=== PATIENT | female | born 1965 | race Caucasian/White ===

== ENCOUNTER 2018-01-14 09:46 | Emergency (ER) | payer SELFPAY ==
[2018-01-14] MEDS ORDERED: ALBUTEROL 2.5 MG/3 ML NEB SOL ONE (11:14)
[2018-01-14] MEDS ORDERED: predniSONE 20 MG TAB ONE (11:14)
[2018-01-14] MEDS ORDERED: IPRATROPIUM BROM 0.5MG/2.5ML ONE (11:14)
--- NOTE | 2018-01-14 12:14 | RAD REPORT ---
EXAM DESCRIPTION: Jim Eisenberg (2 Views)01/14/2018 11:51 am CLINICAL HISTORY: Cough COMPARISON: None FINDINGS: The lungs appear clear of acute infiltrate. The heart is normal size IMPRESSION: No acute abnormalities displayed
--- NOTE | 2018-01-14 12:20 | ER ---
Nurse's Notes [facility] Name: Liz Presley Age: 52 yrs Sex: Female : 1965 Arrival Date: 01/14/2018 Time: 09:51 Bed 7 Private MD: Diagnosis: Chronic obstructive pulmonary disease with (acute) exacerbation Presentation: 01/14 10:04 Presenting complaint: Patient states: [place] been sick for 6 days. It started with a sore aj1 throat that's moved into my chest. Im coughing and having a lot of pain in my back and sides. I feel like I'm getting pneumonia. Reports shortness of breath with activity, chills, non-productive cough, nausea. Denies vomiting, diarrhea. Transition of care: patient was not received from another setting of care. Onset of symptoms was January 08, 2018. Initial Sepsis Screen: Does the patient meet any 2 criteria? No. Patient's initial sepsis screen is negative. Does the patient have a suspected source of infection? No. Patient's initial sepsis screen is negative. Care prior to arrival: None. 10:04 Method Of Arrival: Ambulatory aj1 10:04 Acuity: [place] 3 aj1 Triage Assessment: 10:10 General: Appears in no apparent distress. uncomfortable, Behavior is calm, cooperative, aj1 appropriate for age. Pain: Complains of pain in back and chest Pain does not radiate. Pain currently is 8 out of 10 on a pain scale. Quality of pain is described as sharp, shooting, Pain began 3 days ago. Cardiovascular: Heart tones S1 S2 present Patient's skin is warm and dry. Respiratory: Reports shortness of breath on exertion cough that is non-productive, Airway is patent Respiratory effort is even, unlabored, Respiratory pattern is regular, symmetrical, Breath sounds are clear Onset: The symptoms/episode began/occurred 3 days ago, the patient has mild shortness of breath. 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 - Social history:: Smoking status: Patient uses tobacco products, smokes one pack cigarettes per day. Screenin:15 Abuse screen: Denies threats or abuse. Denies injuries from another. Nutritional jl7 screening: No deficits noted. Tuberculosis screening: No symptoms or risk factors identified. Fall Risk None identified. Assessment: 11:15 General: Appears in no apparent distress. uncomfortable, Behavior is calm, cooperative, jl7 appropriate for age. Pain: Denies pain. Neuro: Level of Consciousness is awake, alert, obeys commands, Oriented to person, place, time, situation. Cardiovascular: Heart tones S1 S2 present Patient's skin is warm and dry. Rhythm is regular. Respiratory: Airway is patent Respiratory effort is even, unlabored, Respiratory pattern is regular, symmetrical, Breath sounds are clear in left upper lobe Breath sounds are diminished in right upper lobe. GI: No signs and/or symptoms were reported involving the gastrointestinal system. : No signs and/or symptoms were reported regarding the genitourinary system. EENT: Throat is reddened. Derm: Skin is pink, warm \T\ dry. Musculoskeletal: No signs and/or symptoms reported regarding the musculoskeletal system. Vital Signs: 10:10 BP 116 / 76; Pulse 66; Resp 20; Temp 97.7; Pulse Ox 100% on R/A; Weight 54.43 kg (R); aj1 Height 5 ft. 0 in. (152.40 cm); Pain 8/10; 11:15 BP 107 / 65; Pulse 65; Resp 20; Pulse Ox 100% ; jl7 11:42 BP 117 / 70; Pulse 75; Resp 16; Pulse Ox 100% on R/A; jl7 10:10 Body Mass Index 23.44 (54.43 kg, 152.40 cm) aj1 ED Course: 09:51 Patient arrived in ED. sb2 10:07 Triage completed. aj1 10:10 Arm band placed on. aj1 11:04 Guillermo Cruz MD is Attending Physician. gs 11:11 Davidson, Jahala, RN is Primary Nurse. jl7 11:15 Patient has correct armband on for positive identification. Placed in gown. Bed in low jl7 position. Call light in reach. Side rails up X 1. Pulse ox on. NIBP on. 11:50 X-ray completed. Patient tolerated procedure well. Patient moved back from radiology. jb2 11:52 Chest Pa And Lat (2 Views) XRAY In Process Unspecified. EDMS 12:30 No provider procedures requiring assistance completed. Patient did not have IV access aa5 during this emergency room visit. Administered Medications: 11:19 Drug: Albuterol 2.5 mg Route: Inhalation; jl7 11:19 Drug: AtroVENT Aerosol 0.5 mg Route: Inhalation; jl7 11:20 Drug: predniSONE 40 mg Route: PO; jl7 12:30 Follow up: Response: No adverse reaction aa5 Outcome: 12:19 Discharge ordered by . 12:29 Discharged to home ambulatory. aa5 12:29 Condition: stable 12:29 Discharge instructions given to patient, Instructed on discharge instructions, follow up and referral plans. medication usage, Demonstrated understanding of instructions, follow-up care, medications, Prescriptions given X 2. 12:30 Patient left the ED. aa5 Signatures: Dispatcher [employer] EDMS Jojo Cheung RN RN alberto1 Garth Saleem jb2 Marla Velazco RN RN aa5 Leonela Davidson RN RN jl7 Guillermo Cruz MD MD gs Billeau, Asha 2
--- NOTE | 2018-01-14 12:20 | EDPHYS ---
Physician Documentation [facility] Name: Liz Presley Age: 52 yrs Sex: Female : 1965 Arrival Date: 01/14/2018 Time: 09:51 Bed 7 Private MD: ED Physician Guillermo Cruz HPI: 01/14 15:24 This 52 yrs old Female presents to ER via Ambulatory with complaints of gs Shortness Of Breath. 15:26 The patient or guardian reports cough. Onset: The symptoms/episode began/occurred 1 gs week(s) ago, and became persistent. Severity of symptoms: At their worst the symptoms were moderate, in the emergency department the symptoms are unchanged. Modifying factors: The symptoms are alleviated by nothing, the symptoms are aggravated by smoke. Associated signs and symptoms: Pertinent negatives: fever. The patient has experienced similar episodes in the past, several times. The patient has not recently seen a physician. 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 - Social history:: Smoking status: Patient uses tobacco products, smokes one pack cigarettes per day. ROS: 15:26 All other systems are negative. gs Exam: 15:26 Head/Face: Normocephalic, atraumatic. Eyes: Pupils equal round and reactive to light, gs extra-ocular motions intact. Lids and lashes normal. Conjunctiva and sclera are non-icteric and not injected. Cornea within normal limits. Periorbital areas with no swelling, redness, or edema. ENT: Nares patent. No nasal discharge, no septal abnormalities noted. Tympanic membranes are normal and external auditory canals are clear. Oropharynx with no redness, swelling, or masses, exudates, or evidence of obstruction, uvula midline. Mucous membranes moist. Neck: Trachea midline, no thyromegaly or masses palpated, and no cervical lymphadenopathy. Supple, full range of motion without nuchal rigidity, or vertebral point tenderness. No Meningismus. Chest/axilla: Normal chest wall appearance and motion. Nontender with no deformity. No lesions are appreciated. Cardiovascular: Regular rate and rhythm with a normal S1 and S2. No gallops, murmurs, or rubs. Normal PMI, no JVD. No pulse deficits. Abdomen/GI: Soft, non-tender, with normal bowel sounds. No distension or tympany. No guarding or rebound. No evidence of tenderness throughout. Back: No spinal tenderness. No costovertebral tenderness. Full range of motion. Skin: Warm, dry with normal turgor. Normal color with no rashes, no lesions, and no evidence of cellulitis. MS/ Extremity: Pulses equal, no cyanosis. Neurovascular intact. Full, normal range of motion. Neuro: Awake and alert, GCS 15, oriented to person, place, time, and situation. Cranial nerves II-XII grossly intact. Motor strength 5/5 in all extremities. Sensory grossly intact. Cerebellar exam normal. Normal gait. 15:26 Constitutional: The patient appears alert, awake. 15:26 Respiratory: the patient does not display signs of respiratory distress, Respirations: normal, Breath sounds: wheezing: expiratory that is moderate, is heard diffusely. Vital Signs: 10:10 BP 116 / 76; Pulse 66; Resp 20; Temp 97.7; Pulse Ox 100% on R/A; Weight 54.43 kg (R); aj1 Height 5 ft. 0 in. (152.40 cm); Pain 8/10; 11:15 BP 107 / 65; Pulse 65; Resp 20; Pulse Ox 100% ; jl7 11:42 BP 117 / 70; Pulse 75; Resp 16; Pulse Ox 100% on R/A; jl7 10:10 Body Mass Index 23.44 (54.43 kg, 152.40 cm) aj1 MDM: 11:10 Patient medically screened. gs 15:26 Differential Diagnosis: Bronchitis Upper Respiratory Infection Pneumonia. Data gs reviewed: vital signs, nurses notes. Response to treatment: the patient's symptoms have markedly improved after treatment, and as a result, I will discharge patient. 01/14 10:59 Order name: Chest Pa And Lat (2 Views) XRAY; Complete Time: 12:18 snw Administered Medications: 11:19 Drug: Albuterol 2.5 mg Route: Inhalation; jl7 11:19 Drug: AtroVENT Aerosol 0.5 mg Route: Inhalation; jl7 11:20 Drug: predniSONE 40 mg Route: PO; jl7 12:30 Follow up: Response: No adverse reaction aa5 Disposition: 01/14/18 12:19 Discharged to Home. Impression: Chronic obstructive pulmonary disease with (acute) exacerbation. - Condition is Stable. - Discharge Instructions: Chronic Obstructive Pulmonary Disease. - Prescriptions for Prednisone 20 mg Oral Tablet - take 2 tablet by ORAL route once daily for 5 days; 10 tablet. Albuterol Sulfate 90 mcg/actuation - inhale 1-2 puff by INHALATION route every 4-6 hours; 1 Inhaler. - Medication Reconciliation Form, Thank You Letter, Antibiotic Education, Prescription Opioid Use form. - Follow up: Private Physician; When: 2 - 3 days; Reason: Re-evaluation by your physician. Signatures: Dispatcher [employer] EDJojo Child RN RN aj1 Marla Velazco RN RN aa5 Leonela Davidson RN RN jl7 Guillermo Cruz MD MD gs Corrections: (The following items were deleted from the chart) 12:30 12:19 01/14/2018 12:19 Discharged to Home. Impression: Chronic obstructive pulmonary aa5 disease with (acute) exacerbation. Condition is Stable. Forms are Medication Reconciliation Form, Thank You Letter, Antibiotic Education, Prescription Opioid Use. Follow up: Private Physician; When: 2 - 3 days; Reason: Re-evaluation by your physician. gs
[2018-01-14 12:33] VITALS: TEMP 97.7; O2SAT 100
[2018-01-14 12:36] VITALS: BP 117/70
== END 2018-01-14 12:30 | disposition home or self-care (01) ==
LOC: ER 09:46
DX: J44.1 Chronic obstructive pulmonary disease with (acute) exacerbation (principal); F41.8 Other specified anxiety disorders; Z88.0 Allergy status to penicillin; Z88.6 Allergy status to analgesic agent; Z88.3 Allergy status to other anti-infective agents
CPT/HCPCS: 71046; 99284; J7512

== ENCOUNTER → 2021-01-29 | Day surgery (SDC) | payer OTHER ==
[2021-01-28 11:25] LABS: Absolute Lymphocytes (CBC) 1.5 K/uL (0.7-4.9); Basophils % 1.4 % (0-1.3); Hematocrit 43.2 % (36.0-45.0); Lymphocytes % 28.1 % (15.3-44.8); MPV 9.3 fL (7.6-11.3); RBC Red Blood Cell Count 4.58 M/uL (3.86-4.86)
[2021-01-28 11:29] LABS: Protime INR 0.97
--- NOTE | 2021-01-28 11:31 | RAD REPORT ---
EXAM DESCRIPTION: Jim Eisenberg (2 Views)01/28/2021 11:11 am CLINICAL HISTORY: Preop COMPARISON: 2018 FINDINGS: The lungs appear clear of acute infiltrate. The heart is normal size IMPRESSION: No acute abnormalities displayed
[~2021-01-29] MED LIST: ATROPINE SULF 1 MG/10 ML SYR IV ONE; FENTANYL CITR 100 MCG/2 ML ONE; HEPA 1000U/500MLS 1,000 UNIT/500 ML BAG IV ONE; LIDOCAINE 1% 20 ML MDV ONE; MIDAZOLAM HCL 2 MG/2 ML INJ ONE; NA CHLORIDE 0.9% 0 ML ONE; NA CHLORIDE 0.9% 500 ML ONE
[2021-01-29 08:32] VITALS: TEMP 97.4
--- NOTE | 2021-01-29 09:41 | OP ---
Date of Procedure: 01/29/2021 Surgeon: Burton Hall MD Geochemist: Mr. J Luis Crane. The patient remained in the hospital for 6 hours of bedrest, after which she will go home on the same home medication. She is already on statin 80 mg daily. I will see her in the office in 2 weeks. Procedure: Left heart catheterization with selective coronary arteriogram. Indication: Abnormal stress test, chest pain, and history of coronary artery disease, status post RC A stent. Procedure In Detail: The [facility] was [facility], 01/30/2020, prepped and draped i n routine sterile fashion. Given Versed and fentanyl for sedation. A 6-Persian sheath introduced in the right common femoral artery successfully. Angiography there showed severe peripheral arterial di sease with very small common iliac. Hand pressure was used for hemostasis after the procedure. A JL 4 and JR4 catheter were used to do the diagnostic catheterization. She was found to have a normal ci rcumflex, normal left main. She had a 40% mid LAD stenosis. She was right dominant. She had a 40% proximal RCA stenosis with a patent RCA stent. No complications. Blood Loss: 5 mL. Postoperative Diagnosis: Moderate coronary artery disease. Plan: Continue medical therapy. Anesthesia: Total conscious sedation was 45 minutes. NB/MODL Voice ID: [id number] Report ID: [id number]
[2021-01-29 13:21] VITALS: O2SAT 97
[2021-01-29 14:08] VITALS: BP 98/64
== END ==
LOC: CCL 06:09
DX: I25.10 Atherosclerotic heart disease of native coronary artery without angina pectoris (principal); E78.2 Mixed hyperlipidemia; R60.0 Localized edema; F41.1 Generalized anxiety disorder; F32.0 Major depressive disorder, single episode, mild; F17.210 Nicotine dependence, cigarettes, uncomplicated; Z95.5 Presence of coronary angioplasty implant and graft; Z20.822 Contact with and (suspected) exposure to COVID-19; Z88.0 Allergy status to penicillin; Z88.3 Allergy status to other anti-infective agents; Z88.6 Allergy status to analgesic agent; Z88.8 Allergy status to other drugs, medicaments and biological substances; Z82.49 Family history of ischemic heart disease and other diseases of the circulatory system
CPT/HCPCS: 85025; 80048; 36415; 85610; 85730; 71046; 93454; U0003; C1893; J2250 ×2; J3010 ×2; J7040; J1644; J0583